=== PATIENT | female | born 1995 | race Caucasian/White ===

== ENCOUNTER 2016-11-03 05:06 | Inpatient (IN) | payer BC ==
[2016-11-03] MEDS ORDERED: Sodium Chloride 0.9% 10 ML Syringe FLUSH PRN ×2 (05:23→09:28)
[2016-11-03] MEDS ORDERED: ceFAZolin 2 GM in Premix Bag 1 BAG IV ONE (05:23)
[2016-11-03] MEDS ORDERED: Sodium Chloride 0.9% 2.5 ML Syringe FLUSH PRN ×2 (05:23→09:28)
[2016-11-03] MEDS ORDERED: Citric Acid/Sodium Citrate Solution 30 ML Cup PO SCH (05:30)
[2016-11-03] MEDS: Lactated Ringers 1,000 ML IV SCH ×4 (05:40→19:51)
--- NOTE | 2016-11-03 07:24 | PCM.PREANE ---
Preanesthetic Assessment - Anesthesia/Transfusion/Family Hx Anesthesia History: Prior Anesthesia Without Reaction Family History of Anesthesia Reaction: No Transfusion History: Prior Transfusion Without Reaction - Review of Systems General: No Symptoms Pulmonary: No Symptoms Cardiovascular: No Symptoms Gastrointestinal: No symptoms Neurological: No Symptoms Other: Reports: None - Physical Assessment NPO Status Date: 11/02/16 NPO Status Time: 23:30 Height: 1.63 m Weight: 84.822 kg ASA Class: 2 Mental Status: Alert & Oriented x3 Airway Class: Mallampati = 1 Dentition: Reports: Normal Dentition ROM/Head Extension: Full Lungs: Clear to auscultation, Normal respiratory effort Cardiovascular: Regular Rate, Regular Rhythm - Lab Values: Laboratory Last Values WBC 10.89 K/uL (4.0-11.0) 11/03/16 05:38 RBC 4.19 M/uL (4.30-5.90) L 11/03/16 05:38 Hgb 12.7 g/dL (12.0-16.0) 11/03/16 05:38 Hct 38.2 % (36.0-46.0) 11/03/16 05:38 MCV 91.2 fL (80.0-98.0) 11/03/16 05:38 MCH 30.3 pg (27.0-32.0) 11/03/16 05:38 MCHC 33.2 g/dL (31.0-37.0) 11/03/16 05:38 RDW Std Deviation 45.0 fl (28.0-62.0) 11/03/16 05:38 RDW Coeff of Silviano 14 % (11.0-15.0) 11/03/16 05:38 Plt Count 126 K/uL (150-400) L 11/03/16 05:38 MPV 11.40 fL (7.40-12.00) 11/03/16 05:38 Nucleated RBC % 0.0 /100WBC 11/03/16 05:38 Nucleated RBCs # 0 K/uL 11/03/16 05:38 Blood Type O POSITIVE 11/03/16 05:38 Antibody Screen NEGATIVE 11/03/16 05:38 - Allergies Allergies/Adverse Reactions: Allergies Allergy/AdvReac Type Severity Reaction Status Date / Time No Known Allergies Allergy Verified 10/31/16 13:20 - Blood Blood Available: Yes - Anesthesia Plan Pre-Op Medication Ordered: Antacids - Acknowledgements Anesthesia Type Planned: Spinal Pt an Appropriate Candidate for the Planned Anesthesia: Yes Alternatives and Risks of Anesthesia Discussed w Pt/Guardian: Yes Pt/Guardian Understands and Agrees with Anesthesia Plan: Yes Additional Comments: , repeat elective C/S. 39/4 weeks, GpBstrept+, NKDA, Hx post hemorrhage after 1st C/S (in PACU, no return to OR) home meds: vits and tums, Ytr=[id number] PreAnesthesia Questionnaire Gastrointestinal History: Reports: Other (See Below) Other Gastrointestinal History: heartburn with Genitourinary History: Reports: None [employer] History: Reports: Hematologic History: Reports: Blood Transfusion(s) Other Hematologic History: blood transfusion following previous c/section - Past Surgical History Head Surgeries/Procedures: Reports: None GI Surgical History: Reports: Appendectomy Female Surgical History: Reports: Section - SUBSTANCE USE Smoking Status *Q: Never Smoker Tobacco Use Within Last Twelve Months: Cigarettes Second Hand Smoke Exposure: No Recreational Drug Use History: No - HOME MEDS Home Medications: Home Meds Pnv No.122/Iron/Folic Acid [ Multi Tablet] 1 tab PO DAILY 10/31/16 [ History] - CURRENT (IN HOUSE) MEDS Current Meds: Current Medications Citric Acid/Sodium Citrate (Bicitra Solution) 30 ml PO .ONCE [place] Last Admin: 11/03/16 06:22 Dose: 30 ml Lactated Ringer's (Ringers, Lactated) 1,000 mls @ 500 mls/hr IV .BOLUS [place] Last Admin: 11/03/16 06:21 Dose: 500 mls/hr Sodium Chloride (Saline Flush) 10 ml FLUSH ASDIRECTED PRN PRN Reason: Keep Vein Open Sodium Chloride (Saline Flush) 2.5 ml FLUSH ASDIRECTED PRN PRN Reason: Keep Vein Open Discontinued Medications Cefazolin Sodium/Dextrose 2 gm (/ Premix) 50 mls @ 100 mls/hr IV ONETIME ONE Stop: 11/03/16 05:52
[2016-11-03] MEDS ORDERED: Morphine PF 10 MG/10 ML SDV ONE (07:28)
[2016-11-03] MEDS ORDERED: Methylergonovine 0.2 MG/1 ML Amp ONE (07:34)
[2016-11-03] MEDS ORDERED: Carboprost Tromethamine 250 MCG/1 ML Amp ONE (07:34)
[2016-11-03] MEDS ORDERED: Phenylephrine/Normal Saline 100 MCG/ML 10 ML Syringe ONE ×2 (08:13→08:45)
[2016-11-03] MEDS ORDERED: ePHEDrine 50 MG/ML SDV ONE (08:18)
[2016-11-03] MEDS ORDERED: Oxytocin 10 Units/1 ML SDV ONE ×2 (08:32→08:43)
[2016-11-03] MEDS ORDERED: Ondansetron 4 MG/2 ML SDV ONE (08:32)
[2016-11-03] MEDS ORDERED: Acetaminophen/oxyCODONE 325-5 MG Tab PO PRN ×2 (08:39→09:39)
[2016-11-03] MEDS ORDERED: Naloxone 0.4 MG/ML Syringe IVPUSH PRN (08:39)
[2016-11-03] MEDS ORDERED: fentaNYL 100 MCG/2 ML SDV IVPUSH PRN (08:39)
[2016-11-03] MEDS ORDERED: Nalbuphine 10 MG/1 ML Vial IVPUSH PRN (08:39)
[2016-11-03] MEDS ORDERED: Propofol 200 MG/20 ML SDV ONE (08:44)
[2016-11-03] MEDS ORDERED: Meperidine PF 25 MG/ML Syringe ONE (08:56)
[2016-11-03] MEDS ORDERED: Phenylephrine 1% 10 MG/ML SDV ONE (09:02)
[2016-11-03] MEDS ORDERED: Measles, Mumps & Rubella Vaccine 0.5 ML SDV SUBCUT ONE (09:28)
[2016-11-03] MEDS ORDERED: Bisacodyl 10 MG Supp RECTAL PRN (09:28)
[2016-11-03] MEDS ORDERED: diphenhydrAMINE 50 MG/ML SDV IVPUSH PRN (09:28)
[2016-11-03] MEDS ORDERED: Lanolin 100% Cream 7 GM Tube TOP PRN (09:28)
[2016-11-03] MEDS ORDERED: Ondansetron 4 MG/2 ML SDV IV PRN (09:28)
--- NOTE | 2016-11-03 09:38 | PCM.OPNOTE ---
- General Post-Op/Procedure Note Date of Surgery/Procedure: 11/03/16 Operative Procedure(s): Repeat section Findings: Female , Wt 3320grams, Apgars 8 and 9. Grossly normal placenta with 3 vessel cord. Normal ovaries, tubes and uterus Pre Op Diagnosis: IUP at 39. 1 weeks Previous , declined Post-Op Diagnosis: Same Anesthesia Technique: Spinal Primary Surgeon: Romy Jo Fluid Replacement, Intraop: 3,500 Output, Urine Amount: 250 EBL in mLs: 500 Complications: None Condition: Good
[2016-11-03] MEDS: Ketorolac 30 MG/ML SDV IVPUSH SCH ×3 (09:45→21:23)
--- NOTE | 2016-11-03 09:51 | PCM.POSTAN ---
POST ANESTHESIA ASSESSMENT - MENTAL STATUS Mental Status: alert, oriented - RESPIRATORY Respiratory Status: respiratory rate WNL, airway patent, O2 saturation stable - CARDIOVASCULAR CV Status: pulse rate WNL, blood pressure stable - GASTROINTESTINAL GI Status: no symptoms - PAIN Pain Score: 5 (Headache, treated with toradol just prior to discharge from PACU) - POST OP HYDRATION Hydration Status: adequate & stable
[2016-11-03] MEDS: Docusate Sodium 100 MG Cap PO SCH (21:24)
--- NOTE | 2016-11-04 00:53 | OR ---
SURGEON: Romy Jo MD DATE OF PROCEDURE: 11/03/2016 PREOPERATIVE DIAGNOSES: 1. Term at 39 weeks and 1 day. 2. Previous , declined . POSTOPERATIVE DIAGNOSES: 1. Term at 39 weeks and 1 day. 2. Previous , declined . 3. Delivered. PROCEDURE: Repeat low-transverse section via Pfannenstiel. ANESTHESIA: Spinal. ESTIMATED BLOOD LOSS: 500 mL. IV FLUIDS: 3500 mL of crystalloids. URINE OUTPUT: 250 mL, clear at the end of the procedure. COMPLICATIONS: None. DISPOSITION: Stable to recovery room. FINDINGS: Female , weight 3320 g, score 8 and 9 at 1 and 5 minutes respectively. Grossly normal uterus, tubes, and ovaries. Grossly normal placenta with 3-vessel cord. BRIEF HISTORY: The patient is a 21-year-old, G2, P1, admitted at 39 weeks and 1 day for repeat low transverse section, history of one prior section. Declined trial of vaginal delivery after section. DESCRIPTION OF PROCEDURE: The patient was taken to the operating room, where a spinal anesthesia was performed and found to be adequate. She was then placed in the dorsal supine position with leftward tilt, prepped and draped in a normal sterile fashion for section. SCDs in place. Urinary catheter in place. Appropriate time- out held. Received 2 g of Ancef. A Pfannenstiel skin incision was made through her old scar and carried to the underlying layer of fascia. The fascia was scored in the midline and extended laterally with the Bovie. The superior aspect of this fascial incision was then grasped with the Jaron clamps, elevated, and underlying rectus muscles was dissected off with the scalpel and the Bovie. Attention was turned to the inferior aspect of this fascial incision, which was grasped with Jaron clamps, elevated, and underlying rectus muscle was dissected off with the Bovie. The rectus muscles were picked up on either side of the midline with 2 Allis clamps and it was then carefully with the Bovie until the parietal peritoneum was reached and a small window was made. This was then extended upwards and downwards with good visualization of the bladder and other internal organs. It was further stretched laterally. An Raymundo self-retaining retractor was then placed into the peritoneal cavity. The vesicouterine peritoneum was identified, picked up and entered sharply with the Metzenbaum scissors and bladder flap was created digitally. The lower uterine segment was then incised in a transverse fashion and was extended upwards and downwards digitally by stretching. The 's head was lifted out of the pelvis and delivered atraumatically followed by the shoulders and the rest of the baby. Baby was vigorous and cried spontaneously at . Cord was double clamped and cut. The was handed over to the waiting nursery staff. Cord blood and gas samples were obtained. The placenta was delivered manually. The uterus was cleaned of all clots and debris. The hysterotomy site was then closed with 0- Vicryl suture in two layers, the first layer was closed in a running, locking fashion and second imbricating layer was performed to obtain excellent hemostasis. The hysterotomy site was found to have excellent hemostasis. The tubes and ovaries were identified and examined. Copious irrigation was performed. The Raymundo retractor was then removed from the abdominal cavity. The hysterotomy site was re-examined and found to have excellent hemostasis. The peritoneal edges were then identified and the peritoneal layer was closed with 2-0 Vicryl. The muscular layer was reapproximated with mattress sutures using 2-0 Vicryl. The subfascial layer was found to be hemostatic. The fascia was then closed with 0 Vicryl in a running locked fashion. The subcuticular layer was made hemostatic with electrocautery. The skin was closed with 4-0 Monocryl using subcuticular stitches. The patient tolerated the procedure well. Sponge, instrument, and needle counts were correct at the end of the procedure. The patient was taken to the recovery room in stable condition. JUAN / NICOLE /[id number] BROWN
[2016-11-04] MEDS: Ketorolac 30 MG/ML SDV IVPUSH SCH ×2 (04:05→19:00)
[2016-11-04] MEDS: Docusate Sodium 100 MG Cap PO SCH ×2 (10:07→20:16)
[2016-11-04] MEDS: Acetaminophen/oxyCODONE 325-5 MG Tab PO PRN ×4 (10:07→20:17)
--- NOTE | 2016-11-04 10:43 | PCM48HPAN ---
Post Anesthesia Note - EVALUATION WITHIN 48HRS OF ANESTHETIC Vital Signs in Normal Range: Yes Patient Participated in Evaluation: Yes Respiratory Function Stable: Yes Airway Patent: Yes Cardiovascular Function Stable: Yes Hydration Status Stable: Yes Pain Control Satisfactory: Yes Nausea and Vomiting Control Satisfactory: Yes Mental Status Recovered: Yes - COMMENTS/OBSERVATIONS Free Text/Narrative:: Denies any complaints or discomforts at this time.
--- NOTE | 2016-11-04 15:26 | PCM.PNPP ---
- General Info Date of Service: 11/04/16 Functional Status: Reports: pain controlled, tolerating diet, ambulating, urinating - Review of Systems General: Reports: No Symptoms HEENT: Reports: no symptoms Pulmonary: Reports: no symptoms Cardiovascular: Reports: No Symptoms Gastrointestinal: Reports: No symptoms, Flatus Genitourinary: Reports: no symptoms Musculoskeletal: Reports: no symptoms Skin: Reports: no symptoms Neurological: Reports: No Symptoms Psychiatric: Reports: no symptoms - General Info Date of Service: 11/04/16 - Patient Data Vital Signs - most recent: Last Vital Signs Temp 36.6 C 11/04/16 12:00 Pulse 79 11/04/16 12:00 Resp 16 11/04/16 12:00 BP 120/69 11/04/16 12:00 Pulse Ox 97 11/04/16 12:00 Weight - most recent: 84.822 kg I&O - last 24 hours: Intake & Output 11/04/16 11/04/16 11/04/16 06:59 14:59 22:59 Output Total 2950 1300 Balance -2950 -1300 Lab Results - last 24 hrs: Laboratory Results - last 24 hr 11/04/16 Range/Units 05:48 Hgb 9.7 L (12.0-16.0) g/dL Hct 29.2 L (36.0-46.0) % Med Orders - Current: Current Medications Bisacodyl (Dulcolax) 10 mg RECTAL .ONCE PRN PRN Reason: Constipation Diphenhydramine HCl (Benadryl) 25 mg IVPUSH Q6H PRN PRN Reason: Itching or Nausea Docusate Sodium (Colace) 100 mg PO BID [facility] Last Admin: 11/04/16 10:07 Dose: 100 mg Emollient Ointment (Lansinoh Hpa) 0 gm TOP ASDIRECTED PRN PRN Reason: Sore Nipples Lactated Ringer's (Ringers, Lactated) 1,000 mls @ 125 mls/hr IV ASDIRECTED [facility] Last Admin: 11/03/16 19:51 Dose: 125 mls/hr Ibuprofen (Motrin) 800 mg PO Q8H PRN PRN Reason: mild pain or fever Ondansetron HCl (Zofran) 4 mg IV Q4H PRN PRN Reason: Nausea/Vomiting Oxycodone/Acetaminophen (Percocet 325-5 Mg) 1 tab PO Q4H PRN PRN Reason: Pain (moderate 4-6) Last Admin: 11/04/16 10:50 Dose: 1 tab Oxycodone/Acetaminophen (Percocet 325-5 Mg) 2 tab PO Q4H PRN PRN Reason: Pain (moderate 4-6) Last Admin: 11/04/16 14:51 Dose: 2 tab Oxycodone/Acetaminophen (Percocet 325-5 Mg) 2 tab PO Q4H PRN PRN Reason: Pain (moderate 4-6) Sodium Chloride (Saline Flush) 10 ml FLUSH ASDIRECTED PRN PRN Reason: Keep Vein Open Sodium Chloride (Saline Flush) 2.5 ml FLUSH ASDIRECTED PRN PRN Reason: Keep Vein Open Discontinued Medications Carboprost Tromethamine (Hemabate Ds) Confirm Administered Dose 250 mcg .ROUTE .STK-MED ONE Stop: 11/03/16 07:35 Citric Acid/Sodium Citrate (Bicitra Solution) 30 ml PO .ONCE [place] Last Admin: 11/03/16 06:22 Dose: 30 ml Ephedrine Sulfate (Ephedrine Sulfate) Confirm Administered Dose 50 mg .ROUTE .STK-MED ONE Stop: 11/03/16 08:19 Fentanyl (Sublimaze) 50 mcg IVPUSH Q5M PRN PRN Reason: Pain (severe 7-10) Stop: 11/04/16 08:39 Glycopyrrolate () Confirm Administered Dose 1 mg .ROUTE .STK-MED ONE Stop: 11/03/16 08:53 Lactated Ringer's (Ringers, Lactated) 1,000 mls @ 500 mls/hr IV .BOLUS [facility] Last Admin: 11/03/16 06:21 Dose: 500 mls/hr Cefazolin Sodium/Dextrose 2 gm (/ Premix) 50 mls @ 100 mls/hr IV ONETIME ONE Stop: 11/03/16 05:52 Ketorolac Tromethamine (Toradol) 30 mg IVPUSH Q6H [place] Stop: 11/04/16 09:31 Last Admin: 11/04/16 04:05 Dose: 30 mg Measles/Mumps/Rubella Vaccine Live (M-M-R Ii Vaccine) 0.5 ml SUBCUT .ONCE ONE Stop: 11/03/16 09:29 Meperidine HCl (Demerol) Confirm Administered Dose 25 mg .ROUTE .STK-MED ONE Stop: 11/03/16 08:57 Methylergonovine Maleate (Methergine) Confirm Administered Dose 0.2 mg .ROUTE .STK-MED ONE Stop: 11/03/16 07:35 Morphine Sulfate (Duramorph Pf) Confirm Administered Dose 10 mg .ROUTE .STK-MED ONE Stop: 11/03/16 07:29 Nalbuphine HCl (Nubain) 2.5 mg IVPUSH Q3H PRN PRN Reason: Pruritis Stop: 11/04/16 08:40 Naloxone HCl (Narcan) 0.1 mg IVPUSH ONETIME PRN PRN Reason: Respiratory Depression Stop: 11/04/16 08:40 Ondansetron HCl (Zofran) Confirm Administered Dose 4 mg .ROUTE .STK-MED ONE Stop: 11/03/16 08:33 Oxycodone/Acetaminophen (Percocet 325-5 Mg) 2 tab PO ONETIME PRN PRN Reason: Pain (moderate 4-6) Oxytocin (Pitocin) Confirm Administered Dose 20 unit .ROUTE .STK-MED ONE Stop: 11/03/16 08:33 Oxytocin (Pitocin) Confirm Administered Dose 20 unit .ROUTE .STK-MED ONE Stop: 11/03/16 08:44 Phenylephrine HCl (Phenylephrine In Ns 100 Mcg/Ml) Confirm Administered Dose 1 mg .ROUTE .STK-MED ONE Stop: 11/03/16 08:14 Phenylephrine HCl (Phenylephrine In Ns 100 Mcg/Ml) Confirm Administered Dose 1 mg .ROUTE .STK-MED ONE Stop: 11/03/16 08:46 Phenylephrine HCl (Chau-Synephrine) Confirm Administered Dose 10 mg .ROUTE .STK- MED ONE Stop: 11/03/16 09:03 Propofol (Diprivan 20 Ml) Confirm Administered Dose 200 mg .ROUTE .STK-MED ONE Stop: 11/03/16 08:45 Sodium Chloride (Saline Flush) 10 ml FLUSH ASDIRECTED PRN PRN Reason: Keep Vein Open Sodium Chloride (Saline Flush) 2.5 ml FLUSH ASDIRECTED PRN PRN Reason: Keep Vein Open - Interaction Infant Disposition, : [place] in Room with Family Interaction: Holding Infant Feeding: Breastfed ; Nursed Well Support Person: - Recovery Exam Fundal Tone: Firm Fundal Level: 1 Fingerbreadths Below Umbilicus Fundal Placement: Midline Lochia Amount: Scant Lochia Color: Rubra/Red Perineum Description: Intact, Minimal Bruising/Swelling Episiotomy/Laceration: None Bladder Status: Voiding Urinary Elimination: Voided - Exam General: alert, oriented Neck: supple Lungs: Clear to auscultation, Normal respiratory effort Cardiovascular: Regular Rate, Regular Rhythm Abdomen: bowel sounds present, soft, no tenderness Extremities: no calf tenderness Skin: warm, dry, intact Wound/Incisions: dressing dry and intact Neurological: no new focal deficit Psy/Mental Status: alert, normal affect, normal mood - Problem List & Annotations (1) Previous delivery, delivered SNOMED Code(s): 088294168, 094196966 Code(s): O34.219 - MATERNAL CARE FOR UNSP TYPE SCAR FROM PREVIOUS DEL Status: Acute Current Visit: Yes - Problem List Review Problem List Initiated/Reviewed/Updated: Yes - Assessment Assessment:: PPD#1 S/p RLTCS Doing well Nursing - Plan Plan:: Increase ambulation May shower today Routine postop/ care
[2016-11-04] MEDS ORDERED: Ibuprofen 800 MG Tab PO PRN (21:00)
[2016-11-04 22:15] LABS: CHLORIDE,CL 110 mmol/L (98-110); SODIUM,NA 140 mmol/L (136-146)
[2016-11-05] MEDS: Acetaminophen/oxyCODONE 325-5 MG Tab PO PRN ×3 (00:17→08:11)
[2016-11-05] MEDS: Docusate Sodium 100 MG Cap PO SCH (08:11)
[2016-11-05 08:34] VITALS: BP 108/65
--- NOTE | 2016-11-05 10:54 | PCM.PNPP ---
- General Info Date of Service: 11/05/16 Functional Status: Reports: pain controlled, tolerating diet, ambulating, urinating - Review of Systems General: Reports: No Symptoms HEENT: Reports: no symptoms Pulmonary: Reports: no symptoms Cardiovascular: Reports: No Symptoms Gastrointestinal: Reports: No symptoms, Flatus Genitourinary: Reports: no symptoms Musculoskeletal: Reports: no symptoms Skin: Reports: no symptoms Neurological: Reports: No Symptoms Psychiatric: Reports: no symptoms - General Info Date of Service: 11/05/16 - Patient Data Vital Signs - most recent: Last Vital Signs Temp 37.1 C 11/05/16 08:00 Pulse 70 11/05/16 08:00 Resp 18 11/05/16 08:00 BP 108/65 11/05/16 08:00 Pulse Ox 98 11/05/16 08:00 Weight - most recent: 84.822 kg I&O - last 24 hours: Intake & Output 11/04/16 11/05/16 11/05/16 22:59 06:59 14:59 Intake Total 550 450 Output Total 1000 850 Balance -450 -400 Lab Results - last 24 hrs: Laboratory Results - last 24 hr 11/04/16 11/04/16 Range/Units 21:46 21:46 WBC 10.23 (4.0-11.0) K/uL RBC 3.45 L (4.30-5.90) M/uL Hgb 10.6 L (12.0-16.0) g/dL Hct 31.4 L (36.0-46.0) % MCV 91.0 (80.0-98.0) fL MCH 30.7 (27.0-32.0) pg MCHC 33.8 (31.0-37.0) g/dL RDW Std Deviation 45.9 (28.0-62.0) fl RDW Coeff of Silviano 14 (11.0-15.0) % Plt Count 169 (150-400) K/uL MPV 10.40 (7.40-12.00) fL Neut % (Auto) 80.4 H (48.0-80.0) % Lymph % (Auto) 13.6 L (16.0-40.0) % Cassia % (Auto) 5.0 (0.0-15.0) % Eos % (Auto) 0.8 (0.0-7.0) % Baso % (Auto) 0.2 (0.0-1.5) % Neut # (Auto) 8.2 H (1.4-5.7) K/uL Lymph # (Auto) 1.4 (0.6-2.4) K/uL Cassia # (Auto) 0.5 (0.0-0.8) K/uL Eos # (Auto) 0.1 (0.0-0.7) K/uL Baso # (Auto) 0.0 (0.0-0.1) K/uL Nucleated RBC % 0.0 /100WBC Nucleated RBCs # 0 K/uL Sodium 140 (136-146) mmol/L Potassium 4.0 (3.5-5.1) mmol/L Chloride 110 (98-110) mmol/L Carbon Dioxide 20 L (21-31) mmol/L BUN 13 (6.0-23.0) mg/dL Creatinine 0.8 (0.6-1.5) mg/dL Est Cr Clr Drug Dosing 94.44 mL/min Estimated GFR (MDRD) > 60.0 ml/min Glucose 92 (60-110) mg/dL Calcium 9.2 (8.8-10.8) mg/dL Total Bilirubin 0.4 (0.1-1.5) mg/dL AST 15 (5-40) IU/L ALT 7 L (8-54) IU/L Alkaline Phosphatase 93 (40-150) Total Protein 5.6 L (6.0-8.0) g/dL Albumin 3.3 L (3.5-5.0) g/dL Globulin 2.3 (2.0-3.5) g/dL Albumin/Globulin Ratio 1.4 (1.3-2.8) Med Orders - Current: Current Medications Bisacodyl (Dulcolax) 10 mg RECTAL .ONCE PRN PRN Reason: Constipation Diphenhydramine HCl (Benadryl) 25 mg IVPUSH Q6H PRN PRN Reason: Itching or Nausea Docusate Sodium (Colace) 100 mg PO BID [place] Last Admin: 11/05/16 08:11 Dose: 100 mg Emollient Ointment (Lansinoh Hpa) 0 gm TOP ASDIRECTED PRN PRN Reason: Sore Nipples Lactated Ringer's (Ringers, Lactated) 1,000 mls @ 125 mls/hr IV ASDIRECTED [place] Last Admin: 11/03/16 19:51 Dose: 125 mls/hr Ibuprofen (Motrin) 800 mg PO Q8H PRN PRN Reason: mild pain or fever Last Admin: 11/04/16 21:41 Dose: 800 mg Measles/Mumps/Rubella Vaccine Live (M-M-R Ii Vaccine) 0.5 ml SUBCUT .ONCE ONE Stop: 11/05/16 11:01 Ondansetron HCl (Zofran) 4 mg IV Q4H PRN PRN Reason: Nausea/Vomiting Oxycodone/Acetaminophen (Percocet 325-5 Mg) 1 tab PO Q4H PRN PRN Reason: Pain (moderate 4-6) Last Admin: 11/04/16 10:50 Dose: 1 tab Oxycodone/Acetaminophen (Percocet 325-5 Mg) 2 tab PO Q4H PRN PRN Reason: Pain (moderate 4-6) Last Admin: 11/05/16 08:11 Dose: 2 tab Oxycodone/Acetaminophen (Percocet 325-5 Mg) 2 tab PO Q4H PRN PRN Reason: Pain (moderate 4-6) Sodium Chloride (Saline Flush) 10 ml FLUSH ASDIRECTED PRN PRN Reason: Keep Vein Open Sodium Chloride (Saline Flush) 2.5 ml FLUSH ASDIRECTED PRN PRN Reason: Keep Vein Open Discontinued Medications Carboprost Tromethamine (Hemabate Ds) Confirm Administered Dose 250 mcg .ROUTE .STK-MED ONE Stop: 11/03/16 07:35 Citric Acid/Sodium Citrate (Bicitra Solution) 30 ml PO .ONCE [place] Last Admin: 11/03/16 06:22 Dose: 30 ml Ephedrine Sulfate (Ephedrine Sulfate) Confirm Administered Dose 50 mg .ROUTE .STK-MED ONE Stop: 11/03/16 08:19 Fentanyl (Sublimaze) 50 mcg IVPUSH Q5M PRN PRN Reason: Pain (severe 7-10) Stop: 11/04/16 08:39 Glycopyrrolate () Confirm Administered Dose 1 mg .ROUTE .STK-MED ONE Stop: 11/03/16 08:53 Lactated Ringer's (Ringers, Lactated) 1,000 mls @ 500 mls/hr IV .BOLUS [facility] Last Admin: 11/03/16 06:21 Dose: 500 mls/hr Cefazolin Sodium/Dextrose 2 gm (/ Premix) 50 mls @ 100 mls/hr IV ONETIME ONE Stop: 11/03/16 05:52 Ketorolac Tromethamine (Toradol) 30 mg IVPUSH Q6H [facility] Stop: 11/04/16 09:31 Last Admin: 11/04/16 19:00 Dose: Not Given Measles/Mumps/Rubella Vaccine Live (M-M-R Ii Vaccine) 0.5 ml SUBCUT .ONCE ONE Stop: 11/03/16 09:29 Meperidine HCl (Demerol) Confirm Administered Dose 25 mg .ROUTE .STK-MED ONE Stop: 11/03/16 08:57 Methylergonovine Maleate (Methergine) Confirm Administered Dose 0.2 mg .ROUTE .STK-MED ONE Stop: 11/03/16 07:35 Morphine Sulfate (Duramorph Pf) Confirm Administered Dose 10 mg .ROUTE .STK-MED ONE Stop: 11/03/16 07:29 Nalbuphine HCl (Nubain) 2.5 mg IVPUSH Q3H PRN PRN Reason: Pruritis Stop: 11/04/16 08:40 Naloxone HCl (Narcan) 0.1 mg IVPUSH ONETIME PRN PRN Reason: Respiratory Depression Stop: 11/04/16 08:40 Ondansetron HCl (Zofran) Confirm Administered Dose 4 mg .ROUTE .STK-MED ONE Stop: 11/03/16 08:33 Oxycodone/Acetaminophen (Percocet 325-5 Mg) 2 tab PO ONETIME PRN PRN Reason: Pain (moderate 4-6) Oxytocin (Pitocin) Confirm Administered Dose 20 unit .ROUTE .STK-MED ONE Stop: 11/03/16 08:33 Oxytocin (Pitocin) Confirm Administered Dose 20 unit .ROUTE .STK-MED ONE Stop: 11/03/16 08:44 Phenylephrine HCl (Phenylephrine In Ns 100 Mcg/Ml) Confirm Administered Dose 1 mg .ROUTE .STK-MED ONE Stop: 11/03/16 08:14 Phenylephrine HCl (Phenylephrine In Ns 100 Mcg/Ml) Confirm Administered Dose 1 mg .ROUTE .STK-MED ONE Stop: 11/03/16 08:46 Phenylephrine HCl (Chau-Synephrine) Confirm Administered Dose 10 mg .ROUTE .STK- MED ONE Stop: 11/03/16 09:03 Propofol (Diprivan 20 Ml) Confirm Administered Dose 200 mg .ROUTE .STK-MED ONE Stop: 11/03/16 08:45 Sodium Chloride (Saline Flush) 10 ml FLUSH ASDIRECTED PRN PRN Reason: Keep Vein Open Sodium Chloride (Saline Flush) 2.5 ml FLUSH ASDIRECTED PRN PRN Reason: Keep Vein Open - Interaction Disposition, : in Room with Family Interaction: Holding Infant Infant Feeding: Breastfed Infant; Nursed Well Support Person: - Recovery Exam Fundal Tone: Firm Fundal Level: 1 Fingerbreadths Below Umbilicus Fundal Placement: Midline Lochia Amount: Scant Lochia Color: Rubra/Red Perineum Description: Intact, Minimal Bruising/Swelling Episiotomy/Laceration: None Bladder Status: Voiding Urinary Elimination: Voided - Exam General: alert, oriented Neck: supple Lungs: Clear to auscultation, Normal respiratory effort Cardiovascular: Regular Rate, Regular Rhythm Abdomen: bowel sounds present, soft, no tenderness Extremities: no calf tenderness Skin: warm, dry, intact Wound/Incisions: healing well Neurological: no new focal deficit Psy/Mental Status: alert, normal affect, normal mood - Problem List & Annotations (1) Previous delivery, delivered SNOMED Code(s): 230188247, 762177376 Code(s): O34.219 - MATERNAL CARE FOR UNSP TYPE SCAR FROM PREVIOUS DEL Status: Acute Current Visit: Yes - Problem List Review Problem List Initiated/Reviewed/Updated: Yes - My Orders Last 24 Hours: My Active Orders 11/05/16 11:50 Ready for Discharge [RC] PER UNIT ROUTINE - Assessment Assessment:: PPD#1 S/p RLTCS Doing well Nursing well - Plan Plan:: Discharge home today with follow up in 2wk and 6wks Pelvic rest for 6wks Bleeding precautions given Thrombotic precautions Infection precautions given blues depression/precautions
[2016-11-05] MEDS ORDERED: Measles, Mumps & Rubella Vaccine 0.5 ML SDV SUBCUT ONE (11:00)
== END 2016-11-05 12:10 | disposition home or self-care (01) | DRG 766 ==
LOC: MW.OB 05:06 → MW.ICU 11-04 17:52
PROVIDERS: ADMIT Obstetrics & Gynecology; ATTEND Obstetrics & Gynecology
PROC: 10D00Z1 Extraction of Products of Conception, Low, Open Approach (ICD-10-PCS; principal; 2016-11-03)
DX: O34.211 Maternal care for low transverse scar from previous cesarean delivery (principal); Z3A.39 39 weeks gestation of pregnancy; Z37.0 Single live birth
CPT/HCPCS: 01961; 36415; 59025; 80053; 85014; 85018; 85025; 85027; 86850; 86900; 86901; 90707; A9270-GY; J1885; J2175; J2270; J2370; J2405; J2590; J2704; J7120